=== PATIENT | female | born 1980 | race Caucasian/White ===

== ENCOUNTER → 2018-06-28 | Outpatient (CLI) | payer BC ==
--- NOTE | 2018-06-28 09:28 | Diagnostic Imaging Report ---
PROCEDURE: MR imaging left lower extremity without contrast. TECHNIQUE: Multiplanar, multisequence non contrast enhanced MR imaging of the left lower extremity was accomplished. INDICATION: Mid to hind foot pain jogger/walker. There is a large osteochondral defect in the medial aspect of the talar dome where there is marrow edema and a full-thickness of cortical defect measuring 5 mm transverse by about 1 cm AP with a depth or height of a 5 mm. There is adjacent marrow edema in addition to the sclerosis. A separable loose body in the joint is not appreciable. The distal tibia the medial lateral and posterior malleolar appeared intact. The intra-and posterior subtalar joints were intact. Fat within the tarsal tunnel and sinus tarsi and nondistorted the plantar fascia appeared normal. Calcaneus appeared normal. The peroneal tendons at an unremarkable volume, morphology and signal intensity. The medial anterior and posterior tendons crossing the ankle were intact. Medial and lateral ligament structures intact. IMPRESSION: Osteochondral defect medial talar dome. No tendon or ligament rupture. In particular the peroneal tendons and plantar fascia appeared unremarkable. Dictated by: Dictated on workstation # [id number]
== END ==
LOC: RAD 07:30
PROVIDERS: ATTEND Podiatrist
DX: M95.8 Other specified acquired deformities of musculoskeletal system (principal); M76.72 Peroneal tendinitis, left leg

== ENCOUNTER → 2021-03-10 | Outpatient (CLI) | payer BC ==
--- NOTE | 2021-03-10 17:24 | Diagnostic Imaging Report ---
INDICATION: Routine screening. COMPARISON: No prior mammogram is available for comparison. This is a baseline study. EXAMINATION: 2D and 3D bilateral screening mammography was performed with CAD. The current study was also evaluated with a Computer Aided Detection (CAD) system. FINDINGS: Both breasts are heterogeneously dense, limiting the sensitivity of mammography. There are intraparenchymal lymph nodes in the upper and outer aspect of the right breast. There is a density in the medial and upper portion of the left breast. Additional views should be obtained of this region. No other mass is identified. No malignant appearing microcalcifications are seen. Axillae are unremarkable. IMPRESSION: Left breast density. Additional views are recommended for further evaluation. ACR BI-RADS Category 0: Incomplete. (Needs additional imaging evaluation). Result letter will be mailed to the patient. Note: At least 10% of breast cancer is not imaged by mammography. Dictated by: Dictated on workstation # [id number]
== END ==
LOC: RAD 15:30
PROVIDERS: ATTEND Obstetrics & Gynecology
DX: Z12.31 Encounter for screening mammogram for malignant neoplasm of breast (principal)
CPT/HCPCS: 77063; 77067

== ENCOUNTER → 2021-03-22 | Outpatient (CLI) | payer BC ==
--- NOTE | 2021-03-22 09:43 | Diagnostic Imaging Report ---
Indication: Left breast density alerted to at screening mammograms mid to posterior depth superiorly. Unilateral left 2-D and 3-D mammography performed with spot compression and full field views in the CC and MLO orientation. Breast parenchymal pattern heterogeneously dense which can limit mammographic sensitivity. No convincing persistent mass is found with spot compression views however the density of the parenchyma limits mammographic sensitivity and we are proceeding with targeted left breast ultrasound superiorly as further evaluation. IMPRESSION: Heterogeneously dense parenchymal pattern with no definite mass with spot views however owing to mammographic limitations we are proceeding with a targeted ultrasound that study currently pending BI-RADS Category 0 left breast ultrasound pending ACR BI-RADS Category 0: Incomplete. (Needs additional imaging evaluation). Result letter will be mailed to the patient. Note: At least 10% of breast cancer is not imaged by mammography. Dictated by: Dictated on workstation # [id number]
--- NOTE | 2021-03-22 10:06 | Diagnostic Imaging Report ---
INDICATION: Density in the left breast superiorly was alerted to at Baseline screening. Subsequent diagnostic views failed to show discrete mass but limited by heterogeneously dense parenchymal pattern and incomplete dispersal. Sonographic surveillance performed over the upper aspect of the left breast mid to posterior depth. No solid or cystic mass. No ductal ectasia. No parenchymal distortion. No suspicious finding. IMPRESSION: Normal negative left breast ultrasound density presenting at initial screening view is felt to have reflected superimposition given today's unremarkable studies. Patient can be returned to routine bilateral screening. BI-RADS Category 1 ACR BI-RADS Category 1: Negative. Dictated by: Dictated on workstation # [id number]
== END ==
LOC: RAD 09:15
PROVIDERS: ATTEND Obstetrics & Gynecology
DX: R92.2 Inconclusive mammogram (principal)
CPT/HCPCS: 76642; 77065; G0279

== ENCOUNTER → 2022-04-17 | Outpatient (CLI) | payer BC ==
--- NOTE | 2022-04-17 13:28 | Diagnostic Imaging Report ---
INDICATION: Routine screening. COMPARISON: 03/10/2021. TECHNIQUE: 2D and 3D bilateral screening mammography was performed with CAD. FINDINGS: Both breasts are heterogeneously dense, limiting the sensitivity of mammography. There are circumscribed densities in both breasts which appear benign. No spiculated mass or malignant-appearing microcalcifications are identified. The axillae are unremarkable. IMPRESSION: No mammographic features suspicious for malignancy are identified. ACR BI-RADS Category 2: Benign findings. Result letter will be mailed to the patient. Note: At least 10% of breast cancer is not imaged by mammography. Dictated by: Dictated on workstation # [id number]
== END ==
LOC: RAD 08:04
PROVIDERS: ATTEND Family Medicine
DX: Z12.31 Encounter for screening mammogram for malignant neoplasm of breast (principal)
CPT/HCPCS: 77063; 77067

== ENCOUNTER → 2023-04-22 | Outpatient (CLI) | payer BC ==
--- NOTE | 2023-04-22 14:08 | Diagnostic Imaging Report ---
INDICATION: Routine screening. Comparison is made with prior mammogram from 04/17/2022 and 03/10/2021. 2-D and 3-D bilateral screening mammography was performed with CAD. The current study was also evaluated with a Computer Aided Detection (CAD) system. Both breasts are heterogeneously dense, limiting the sensitivity of mammography. Bilateral breast nodules appear to be stable. No spiculated mass or malignant-appearing microcalcifications are seen. Axillae are unremarkable. IMPRESSION: BI-RADS Category 2 No mammographic features suspicious for malignancy are identified. ACR BI-RADS Category 2: Benign findings. Result letter will be mailed to the patient. Note: At least 10% of breast cancer is not imaged by mammography. Dictated by: Dictated on workstation # [id number]
== END ==
LOC: RAD 10:45
PROVIDERS: ATTEND Nurse Practitioner Family
DX: Z12.31 Encounter for screening mammogram for malignant neoplasm of breast (principal)
CPT/HCPCS: 77063; 77067